=== PATIENT | female | born 1955 | race Native Hawaiian/Other Pacific Islander ===

== ENCOUNTER → 2017-02-21 | Outpatient (CLI) | payer OTHER ==
[~2017-02-21] MED LIST: CIPRO500 MG PO; HARVONI 90-4001 EACH PO; JANUVIA100 MG PO; LEVAQUIN 500 M500 M1 PO; NORCO 5-325 TA1 EACH PO; TRESIBA FL100 UNIT/1 SQ; VALSARTAN-HCTZ1 EAC4 PO; ZOCOR20 MG PO; ZOFRAN ODT4 MG BUCCAL; ZOFRAN ODT4 MG DISSOLVE
[2017-02-21 10:14] LABS: ABSOLUTE NEUTROPHILS 5.3 thou/uL (1.4-8.2); EOSINOPHILS 2.4 % (0.0-3.0); HEMATOCRIT 39.6 % (37.0-47.0); HEMOGLOBIN 14.1 gm/dL (12.0-15.0); LYMPHOCYTES 24.5 % (24.0-44.0); MCHC 35.6 g/dL (28.0-37.0); PLATELET COUNT 180 thou/uL (150-400); POLYS 65.1 % (36.0-66.0); RBC 4.55 mil/uL (4.20-5.00); RDW 12.7 % (10.5-14.5); WBC 8.1 thou/uL (4.0-11.0)
[2017-02-21 10:17] LABS: MANUAL DIFF NO
[2017-02-21 10:27] LABS: ALBUMIN 3.8 g/dL (3.4-5.0); CALCIUM 8.7 mg/dL (8.5-10.1); CREATININE 1.6 mg/dL (0.6-1.0); POTASSIUM 3.9 mmol/L (3.5-5.1); TOTAL BILIRUBIN 0.3 mg/dL (<0.1-1.0); TOTAL PROTEIN 7.8 g/dL (6.4-8.2)
[2017-02-23 10:10] LABS: HCV-RNA by PCR HCV Not Detected IU/mL (())
== END ==
LOC: LABMALL 09:42
PROVIDERS: Internal Medicine Gastroenterology
DX: Z79.899 Other long term (current) drug therapy (principal)

== ENCOUNTER → 2019-07-05 | Outpatient (CLI) | payer OTHER ==
[~2019-07-05] MED LIST changes: +ASA81BEC PO; +NOVOLOG100 UNIT/1 SUBQ; +OLMESARTAN-HCT1 EAC2 PO
== END ==
LOC: RAD 15:16
DX: S82.831A Other fracture of upper and lower end of right fibula, initial encounter for closed fracture (principal); M25.474 Effusion, right foot; M25.475 Effusion, left foot; W19.XXXA Unspecified fall, initial encounter; Y93.89 Activity, other specified; Y92.89 Other specified places as the place of occurrence of the external cause; Y99.8 Other external cause status

== ENCOUNTER → 2019-07-09 | Outpatient (CLI) | payer OTHER | LOC: CAT 14:52 | DX: S92.152A Displaced avulsion fracture (chip fracture) of left talus, initial encounter for closed fracture (principal); M85.872 Other specified disorders of bone density and structure, left ankle and foot; M76.62 Achilles tendinitis, left leg; M77.32 Calcaneal spur, left foot; W19.XXXA Unspecified fall, initial encounter; Y93.89 Activity, other specified; Y92.89 Other specified places as the place of occurrence of the external cause; Y99.8 Other external cause status ==

== ENCOUNTER 2019-07-16 08:07 | Observation (INO) | payer OTHER ==
[~2019-07-16] VITALS: Ht 157.5 cm; Wt 80.7 kg
[2019-07-16 09:10] VITALS: BP 113/67
[2019-07-16 09:13] LABS: CALCIUM 9.3 mg/dL (8.5-10.1); CREATININE 1.5 mg/dL (0.6-1.0); POTASSIUM 3.7 mmol/L (3.5-5.1)
--- NOTE | 2019-07-16 14:10 | EKG ---
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
--- NOTE | 2019-07-16 18:32 | O ---
[facility] [place] [address] OPERATIVE REPORT Name: RUBY BENAVIDEZ Room #: 437-P [facility].R.#: [id number] Admission: 07/16/19 Attend Phys: Mendoza Gutierres MD Discharge: Date of : 59 Report #: [id number] THIS REPORT FOR: //name// CC: Mendoza Joseph DATE OF SERVICE: 07/16/2019 SERVICE: Orthopedics. FACILITY: [facility]. SURGEON: Mendoza Gutierres MD COMBINER OPERATOR: Rachel Lugo NP. PREOPERATIVE DIAGNOSES: 1. Right trimalleolar ankle fracture. 2. Left talar neck fracture. POSTOPERATIVE DIAGNOSES: 1. Right trimalleolar ankle fracture. 2. Left talar neck fracture. PROCEDURES: 1. Open reduction and internal fixation of right trimalleolar ankle fracture with fixation of fibula. 2. Nonsurgical management of left talar neck fracture. ANESTHESIA: General with regional. COMPLICATIONS: None. DRAINS: None. SPECIMENS: None. FINDINGS: 1. Magali distal fibular locking plate. 2. Stable medial side. 3. Reduced joint and posterior malleolus. HISTORY AND INDICATIONS: The patient is a 63-year-old female who fell last week on a way and where she sustained a right trimalleolar ankle fracture as well as CT eventually showed to be a left talar neck fracture, was more of an impaction type fracture and so there was no fracture line extending across the talar neck. [facility] [place] [address] OPERATIVE REPORT Name: RUBY BENAVIDEZ Room #: 437-P [facility] M.R.#: [id number] Admission: 07/16/19 Attend Phys: Mendoza Gutierres MD Discharge: Date of : 59 Report #: [id number] It was structurally stable, but I did consult with my foot and ankle colleague and we agreed that nonoperative management was most appropriate. She will be treated with boot immobilization for this to allow increased mobility since she does have bilateral lower extremity fractures and will be in a splint and nonweightbearing on the right side as well. The left ankle was indicated for surgical management. Risks, benefits, alternatives and indications of surgery were discussed with her in detail. Risks include but not limited to pain, bleeding, infection, injury to nerves or blood vessels, persistent pain despite surgical intervention, malunion, nonunion, need for further surgery, stiffness as well as complications related to anesthesia such as stroke, heart attack, pulmonary complications, thromboembolic disease and . Despite these risks, she wished to proceed. We did discuss specifically thromboembolic disease and she will be treated with Xarelto postoperatively for prophylaxis. PROCEDURE IN DETAIL: After right lower extremity was correctly identified in preoperative holding area as the operative extremity, the patient underwent placement of single shot regional nerve block. She was then taken to the operating room where general anesthesia was induced without complication. She was padded appropriately. A tourniquet was applied to right leg. Prophylactic antibiotics were administered at appropriate time. Right leg was then prepped and draped in standard sterile fashion. Time-out procedure was performed. A lateral incision was made. Dissection was taken down to the fibula. The fracture was exposed, cleaned of hematoma and then a bone reduction forceps was used to perform an anatomic reduction of the fibula. Overall, her quality was good, but because she is bilaterally injured and will be nonweightbearing bilaterally and because she is diabetic, I favor a stronger repair construct which was selected a distal fibular locking plate. After reduction, a 3.5 mm interfragmentary lag screw was placed and this provided good compression at the fracture and then the locking plate was placed in neutralization mode. The plate was then applied. It was provisionally fixed with a K-wire distally and then it was centered over the bone and fixed proximally as well. A good cortical purchase was obtained proximally. I then used a nonlocking screw to compress the plate down to the bone distally using multiple planes of x-ray throughout and then completed the locking screw fixation distally. Good secure repair was achieved. I then performed a cotton test and the syndesmosis was stable. At this point, I carefully evaluated the medial side. She had an unusual contouring of her medial malleolus that had almost tiered appearance that was giving an impression on all ankle series, which was a total of 3 sets of x-rays that we had in addition to the intraoperative images that suggested a nondisplaced fracture line through the medial malleolus and I was concerned that this was unstable. She did have a cortical avulsion type of injury at the metaphysis over the medial side of the tibia, but this did not communicate with the joint service and was not mechanically unstable, so this particular fracture [address] [address] OPERATIVE REPORT Name: RUBY BENAVIDEZ Room #: 437-P [facility] Uli#: [id number] Admission: 07/16/19 Attend Phys: Mendoza Gutierres MD Discharge: Date of : 59 Report #: [id number] line did not need reduction and fixation as this will heal fine on its own; however, is uncomfortable with leaving the medial malleolus if there is in fact an intra-articular fracture line. Therefore, I made a curvilinear incision over the medial aspect of the ankle, dissected down to the periosteum and then incised the periosteum and carefully inspected the entire medial malleolus including making arthrotomy into the joint to ensure that there was no fracture line. The medial malleolus was palpated and was confirmed to be stable. I visualized anteriorly, centrally and posteriorly and irrigated the joint out because I was there with an arthrotomy. The medial side was therefore closed because it was structurally stable and there was no indication for internal fixation. Then, the lateral side was irrigated as well. Final x-rays were taken confirming appropriate positioning of the lateral plate and then the skin was closed with 2-0 Vicryl followed by running subcuticular 3-0 Monocryl and Steri-Strips. Sterile dressing was applied and then a well-padded short leg splint was applied. A boot immobilizer was then placed on the left foot for management of the left side. There were no complications. All counts were correct. <ELECTRONICALLY SIGNED> By: Mendoza Gutierres MD 07/16/19 1832 1707 181 Mendoza Gutierres MD /nt
--- NOTE | 2019-07-16 19:08 | NUR ---
64 YO FEMALE TRANSFERED FROM PACU TO 437. A&OX4, IV INTACT IN L ARM. SOFT CAST IN PLACE TO RLE, SCD AND HARD BOOT IN PLACE ON LLU. PT IS NON BEARING TO BOTH LOWER EXTREMITIES. ORIENTED PT TO ROOM/ CALL LIGHT. SPOUSE AT BEDSIDE.
[2019-07-16 19:40] VITALS: BP 134/70
--- NOTE | 2019-07-17 04:24 | NUR ---
ASSUMED PT CARE AT @19:00.PT IS NONE WEIGHT WEIGHT BEARING BLE.PT HAS CAST ON RLE AND IMMOBILISER ON LLE WITH SCD.PT HAD A BLLOD SUGAR LEVEL OF 338 AND DOCTOR CALLED AND INSULIN STARTED.PT USES BEDPAN.CONTINUE POC.
[2019-07-17 05:38] VITALS: BP 123/62
[2019-07-17 08:20] VITALS: BP 110/63
--- NOTE | 2019-07-17 11:52 | NUR ---
PT A&OX4, IV INTACT IN L FA. DENIES ANY PAIN AT THIS TIME. PT UNABLE WORK WITH PATIENT DUE TO HER HAVING NO FELLING IN LOWER EXTREMITIES YET. IV INTACT IN L FA. ORTHO BOOT IN PLACE TO LLE ALONG WITH SCD, SOFT CAST TO RLE. WILL CONT POC.
--- NOTE | 2019-07-17 12:36 | NUR ---
INITIAL ASSESSMENT: Pt evaluated for d/c planning needs. Reviewed chart and spoke with nurse and pt and PT. Pt is alert and oriented. Pt lives in house with spouse and extended family. Pt has crutches at home. Pt will be non-weight bearing on both legs, so will need w/c for home use. Faxed order to [facility] and spoke with liaison. They will deliver w/c to pt prior to d/c. PT to give recommendation re: pt being able to get into and out of car for transport home.
[2019-07-17 13:59] VITALS: BP 110/63
[2019-07-17 15:19] VITALS: BP 110/63
== END 2019-07-17 17:54 | disposition home or self-care (01) ==
LOC: OR 08:07 → TBA 08:13 → OR 12:02 → 4S 15:16 → OR 15:17 → 4S 15:17
PROVIDERS: ADMIT Orthopaedic Surgery Sports Medicine
DX: S82.851A Displaced trimalleolar fracture of right lower leg, initial encounter for closed fracture (principal); S93.402A Sprain of unspecified ligament of left ankle, initial encounter; E11.9 Type 2 diabetes mellitus without complications; Z79.4 Long term (current) use of insulin; E66.3 Overweight; W19.XXXA Unspecified fall, initial encounter; Y93.89 Activity, other specified; Y92.89 Other specified places as the place of occurrence of the external cause; Z68.32 Body mass index [BMI] 32.0-32.9, adult; S92.112A Displaced fracture of neck of left talus, initial encounter for closed fracture
CPT/HCPCS: 10102; 50010; 50101; 50386; 55430; 56527; 56528; 57091; 57180; 62110; 62900; 70005